=== PATIENT | female | born 1995 | race Caucasian/White ===

== ENCOUNTER 2020-12-15 23:09 | Emergency (ER) | payer OTHER ==
[~2020-12-15] VITALS: Ht 160 cm; Wt 117.9 kg
[2020-12-15 23:15] VITALS: BP_SYST 117
[2020-12-15] MEDS ORDERED: IBUPROFEN 800 MG TABLET PO ONE (23:30)
--- NOTE | 2020-12-15 23:30 | NUR ---
Patient to ER bed 7 to gown for evaluation. Side rails up. Report given to ROSS PUTNAM.
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
--- NOTE | 2020-12-15 23:52 | NUR ---
DR. LOPEZ AT BEDSIDE FOR EVALUATION.
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
--- NOTE | 2020-12-16 01:11 | NUR ---
Patient resting quietly. No acute distress noted. Vital signs within normal range.
[2020-12-16] MEDS ORDERED: CYCL10TA24 PO (02:02)
[2020-12-16] MEDS ORDERED: KETO10TA2 PO (02:04)
[2020-12-16] MEDS ORDERED: IBUPROFEN 800 MG TABLET PO ONE (02:15)
[2020-12-16 02:18] VITALS: BP_SYST 117
--- NOTE | 2020-12-16 02:19 | NUR ---
Patient given written and verbal discharge instructions and verbalizes understanding. DR. JESSICA RIVER MD discussed with patient the results and treatment provided. Patient in stable condition. ID arm band removed. Rx of FLEXRIL, KETOROLAC given. Patient educated on pain management and to follow up with PMD. Pain Scale 0/10 Opportunity for questions provided and answered. Medication side effect fact sheet provided.
[2020-12-16] MEDS ORDERED: IBUPROFEN 800 MG TABLET ONE (02:21)
== END 2020-12-16 02:18 | disposition home or self-care (01) ==
LOC: SED 23:09
DX: M25.512 Pain in left shoulder (principal); M54.2 Cervicalgia; Z88.5 Allergy status to narcotic agent; Z79.899 Other long term (current) drug therapy; V43.52XA Car driver injured in collision with other type car in traffic accident, initial encounter; Y93.89 Activity, other specified; Y92.89 Other specified places as the place of occurrence of the external cause; Y99.8 Other external cause status
CPT/HCPCS: 72040-TC; 73030; 81025; 99284